=== PATIENT | female | born 2000 | race Caucasian/White ===

== ENCOUNTER 2019-06-20 12:07 | Emergency (ER) | payer OTHER ==
[2019-06-20 12:17] VITALS: BP 128/78
--- NOTE | 2019-06-20 12:22 | ED Physician Documentation ---
PD HPI URI - Stated complaint Stated Complaint: COUGH AND EAR PX - Chief complaint Chief Complaint: Heent - History obtained from History obtained from: Patient - History of Present Illness Timing - onset: How many days ago (2) Timing duration: Days (2) Timing details: Abrupt onset, Still present Associated symptoms: Sore throat, Swollen nodes, Dry cough (mild). No: Fever, Nasal congestion Contributing factors: No: Sick contact Improves by: Rest Worsened by: Other (swallowing) Recently seen: Not recently seen Review of Systems Constitutional: reports: Fever Nose: denies: Rhinorrhea / runny nose, Congestion Throat: reports: Sore throat. denies: Oral lesions / sores Respiratory: reports: Cough PD PAST MEDICAL HISTORY - Past Medical History Past Medical History: No Cardiovascular: Murmur (from VSD, and gets abx prior to dental work/etc. ) Neuro: None - Present Medications Home Medications: Ambulatory Orders Medication Instructions Recorded Confirmed Cephalexin [Keflex] 500 mg PO TID #21 capsule 06/20/19 Hydrocodone/Acetaminophen 1 each PO Q6H PRN #12 tablet 06/20/19 [Hydrocodon-Acetaminophen 5-325] dexAMETHasone [Decadron] 4 mg PO DAILY #5 tablet 06/20/19 - Allergies Allergies/Adverse Reactions: Allergies Allergy/AdvReac Type Severity Reaction Status Date / Time No Known Drug Allergies Allergy Verified 06/20/19 12:15 - Living Situation Living Arrangement: reports: At home - Social History Does the pt smoke?: No Smoking Status: Never smoker Does the pt drink ETOH?: No Does the pt have substance abuse?: No - Immunizations Immunizations are current?: Yes PD ED PE NORMAL - Vitals Vital signs reviewed: Yes - General General: Alert and oriented X 3, No acute distress, Well developed/nourished - HEENT HEENT: Ears normal, Pharynx benign - Neck Neck: Supple, no meningeal sign, No bony TTP, No adenopathy - Cardiac Cardiac: RRR, Other (loud left heart border murmur holosystolic with mild diastolic murmur too (to-and-fro)) - Respiratory Respiratory: Clear bilaterally - Abdomen Abdomen: Soft, Non tender - Derm Derm: Normal color, Warm and dry, No rash - Neuro Neuro: Alert and oriented X 3, No motor deficit, Normal speech Results - Vitals Vitals: Vital Signs - 24 hr 06/20/19 12:12 Temperature 37.1 C Heart Rate 118 H Respiratory 16 Rate Blood Pressure 128/78 O2 Saturation 100 Oxygen O2 Source Room air - Labs Labs: Laboratory Tests 06/20/19 12:17 Group A Strep Rapid Negative PD MEDICAL DECISION MAKING - ED course Complexity details: considered differential (concering for pharyngitis, and given her heart murmur, would certainly want to pre-empt any bacterial cause.), d/w patient Departure - Departure Disposition: Home, Self Care Clinical Impression: Acute pharyngitis Qualifiers: Pharyngitis/tonsillitis etiology: unspecified etiology Qualified Code(s): J02.9 - Acute pharyngitis, unspecified Condition: Stable Record reviewed to determine appropriate education?: Yes Instructions: ED Strep Pharyngitis Poss Prescriptions: Cephalexin [Keflex] 500 mg PO TID #21 capsule dexAMETHasone [Decadron] 4 mg PO DAILY #5 tablet Hydrocodone/Acetaminophen [Hydrocodon-Acetaminophen 5-325] 1 each PO Q6H PRN #12 tablet PRN Reason: pain Comments: Stay well-hydrated. Tylenol or ibuprofen if needed for pains or fevers. Add hydrocodone if needed for worse pain. Decadron steroid anti-inflammatory will help with swelling in the throat and decrease symptoms. Take as directed. Cephalexin antibiotic as directed. Will continue that at least until the culture result is available. If the culture is negative for strep at that point you can discontinue the antibiotics.. Discharge Date/Time: 06/20/19 13:23
[2019-06-20] MEDS ORDERED: DEXAMETHASONE 10 MG/ML VIAL PO STA (12:38)
[2019-06-20] MEDS ORDERED: cephALEXin 250 MG CAPSULE PO STA (12:38)
[2019-06-20] MEDS ORDERED: CHERRY SYRUP 10 ML UDC PO ONE (12:38)
[2019-06-20] MEDS ORDERED: HYDROcod/ACETAM 5/325 MG TABLET PO STA (12:38)
== END 2019-06-20 13:23 | disposition home or self-care (01) ==
LOC: ED 12:07
DX: J02.9 Acute pharyngitis, unspecified (principal); R01.1 Cardiac murmur, unspecified
CPT/HCPCS: 87070; 87430; 99283; A9270